=== PATIENT | female | born 1965 | race Caucasian/White ===

== ENCOUNTER 2017-02-18 06:00 | Inpatient (IN) | payer OTHER ==
[~2017-02-18] VITALS: Ht 165.1 cm; Wt 107.5 kg
[2017-02-18 07:27] LABS: BASOPHILS # (AUTO) 0.1 K/uL (0.00-0.22); BASOPHILS % (AUTO) 1.1 % (0.0-2.0); EOSINOPHILS # (AUTO) 0.2 K/uL (0-0.4); EOSINOPHILS % (AUTO) 1.9 % (0.0-4.0); HEMATOCRIT 37.2 % (36-48); HEMOGLOBIN 12.4 g/dL (12.0-16.0); LYMPHOCYTES # (AUTO) 1.7 K/uL (2.5-16.5); LYMPHOCYTES % (AUTO) 21.2 % (20.5-51.1); MEAN CORPUSCULAR HEMOGLOBIN 28 pg (27-31); MEAN CORPUSCULAR HGB CONC 34 g/dL (33-37); MEAN CORPUSCULAR VOLUME 83 fL (80-94); MONOCYTES # (AUTO) 0.4 K/uL (0.8-1.0); MONOCYTES % (AUTO) 5.1 % (1.7-9.3); NEUTROPHILS # (AUTO) 5.5 K/uL (1.8-7.7); NEUTROPHILS % (AUTO) 70.7 % (42.2-75.2); PLATELET COUNT (AUTO) 226 K/uL (140-450); RED BLOOD CELL COUNT(AUTO) 4.49 MIL/uL (4.20-5.40); RED CELL DISTRIBUTION WIDTH 14.1 % (11.6-13.7); WHITE BLOOD COUNT (AUTO) 7.9 K/uL (4.8-10.8)
[2017-02-18] MEDS ORDERED: BUPIVACAINE-MPF/EPI 0.5% 30 ML VIAL INJ ONE (07:29)
[2017-02-18 07:50] LABS: ANION GAP 13.3 (8-16); CALCIUM 8.6 mg/dL (8.5-10.1); CARBON DIOXIDE 26.4 mmol/L (21-32); CREATININE 0.6 mg/dL (0.6-1.3); POTASSIUM 3.7 mmol/L (3.5-5.1)
[2017-02-18 07:56] LABS: ALBUMIN 3.3 g/dL (3.4-5.0); TOTAL BILIRUBIN 0.4 mg/dL (0.0-1.0); TOTAL PROTEIN, SERUM 8.1 g/dL (6.4-8.2)
[2017-02-18] MEDS ORDERED: PROPOFOL 200 MG/20 ML VIAL IV ONE (08:09)
[2017-02-18] MEDS ORDERED: ROCURONIUM 50 MG/5 ML VIAL IV ONE (08:09)
[2017-02-18] MEDS ORDERED: PHENYLEPHRINE 10 MG/ML VIAL IM ONE (08:09)
[2017-02-18] MEDS ORDERED: GLYCOPYRROLATE 0.2 MG/ML VIAL IV ONE (08:09)
[2017-02-18] MEDS ORDERED: ONDANSETRON 4 MG/2 ML VIAL IVP ONE (08:09)
[2017-02-18] MEDS ORDERED: ONDANSETRON 4 MG/2 ML VIAL IVP PRN ×2 (08:20→08:40)
[2017-02-18] MEDS ORDERED: fentaNYL 0.05 MG/ML VIAL ONE (08:21)
[2017-02-18] MEDS ORDERED: HYDROmorphone PFS 2 MG/ML SYR ONE (08:21)
[2017-02-18] MEDS ORDERED: HYDROmorphone 1 MG/ML AMP IVP PRN (08:40)
[2017-02-18] MEDS: HYDROmorphone PFS 2 MG/ML SYR ONE ×2 (09:35→09:45)
--- NOTE | 2017-02-18 10:20 | NUR ---
RECEIVED PATIENT FROM OR, PT SLEEPING AND AROUSABLE NO SIGNS OF ACUTE DISTRESS. RECEIVED REPORT FROM RN IN OR.
--- NOTE | 2017-02-18 10:20 | NUR ---
PT SLEEPING AND AROUSABLE, NO SIGNS OF ACUTE DISTRESS. BOWEL SOUNDS ACTIVE IN ALL 4 QUADRANTS. BEDREST. SURGICAL MIDLINE LOWER ABDOMINAL INCISION CLOSED WITH GEOFF AND COVERED WITH DRY DRESSING. NO PAIN IS NOTED AT THIS TIME PATIENT IS ASLEEP. BOWEL AND BLADDER CONTINENCE. BOLUS OF NORMAL SALINE INFUSING IN IV ON THE RIGHT WRIST, IV PATENT AND ASYMPTOMATIC. ORIENTED FAMILY AND PATIENT TO HOSPITAL AND UNIT, FAMILY AND PATIENT VERBALIZES UNDERSTANDING, REINFORCEMENT NEEDED DUE TO PATIENT BEING GROGGY FROM ANESTHESIA AND PAIN MEDICATION FROM SURGERY.
[2017-02-18] MEDS ORDERED: METF850T37 PO (10:58)
[2017-02-18] MEDS ORDERED: ASPI81CT80 PO (10:58)
[2017-02-18] MEDS ORDERED: LANTUS SUBQ (10:58)
[2017-02-18] MEDS ORDERED: AMLO-27 PO (10:58)
[2017-02-18] MEDS ORDERED: BENA20TA5 PO (10:58)
[2017-02-18] MEDS ORDERED: GLIP5TAB13 PO (10:58)
[2017-02-18] MEDS ORDERED: SIMV20TA6 PO (10:58)
[2017-02-18] MEDS: MORPHINE SULFATE 4 MG/ML SYR IM/IVP PRN ×3 (14:57→23:23)
[2017-02-18 16:00] VITALS: BP 127/59
[2017-02-18] MEDS: BLOOD GLUCOSE MONITORING 1 DEV DEV FS SCH ×2 (16:30→21:13)
[2017-02-18] MEDS: LACTATED RINGERS 1,000 ML IV SCH (16:30)
[2017-02-18] MEDS: INSULIN LISPRO SLIDING SCALE 100 UNITS/ML VIAL SUBQ PRN (17:31)
--- NOTE | 2017-02-18 19:30 | NUR ---
PT AWAKE AND ALERT, NO SIGNS OF ACUTE DISTRESS. ENDORSED TO SOCIAL SERVICE DIRECTOR NURSE FOR CONTINUITY OF CARE.
--- NOTE | 2017-02-18 19:31 | NUR ---
RECEIVED REPORT, ASSUMED CARE. PT AAOX4.NO S/S OF RESPIRATORY DISTRESS AT THIS TIME. IV ACCESS TO RT WRIST, GAUGE 20. NO S/S OF INFILTRATION AT THIS TIME. ALL NEEDS ANTICIPATED. CALL LIGHT KEPT WITHIN EASY REACH. DISCUSSED PLAN OF CARE. PT VERBALIZED UNDERSTANDING.PT C/O ABDOMINAL SURGICAL INCISION. DRESSING INTACT, CLEAN WITH NO ACTIVE BLEEDING AT THIS TIME. MAHAN CATH IN PLACE, DRAINING CLEAR URINE OUTPUT. WILL MEDICATE PAIN. WILL CONTINUE TO MONITOR.
[2017-02-18 20:00] VITALS: BP 128/68
--- NOTE | 2017-02-18 21:13 | NUR ---
BLOOD SUGAR 143MG/DL WITH NO INSULIN COVERAGE PER SLIDING SCALE. PT ASYMPTOMATIC. WILL CONTINUE TO MONITOR.
--- NOTE | 2017-02-18 23:55 | NUR ---
ASSISTED PT TO REPOSITION SELF IN BED. KEPT CLEAN AND COMFORTABLE AT ALL TIMES. CALL LIGHT WITHIN EASY REACH.
[2017-02-19] VITALS: BP 126/64
[2017-02-19] MEDS: LACTATED RINGERS 1,000 ML IV SCH ×3 (03:18→22:30)
--- NOTE | 2017-02-19 03:18 | NUR ---
IVF LR DONE, HOOKED A NEW BAG OF IVF LR WITH SAME RATE OF 100ML/HR. PT TOLERATE WELL.
[2017-02-19] MEDS: MORPHINE SULFATE 4 MG/ML SYR IM/IVP PRN ×3 (04:45→15:11)
[2017-02-19] MEDS: BLOOD GLUCOSE MONITORING 1 DEV DEV FS SCH ×4 (06:06→20:34)
[2017-02-19 06:16] LABS: BASOPHILS % (AUTO) 0.5 % (0.0-2.0); EOSINOPHILS # (AUTO) 0.1 K/uL (0-0.4); HEMATOCRIT 33.3 % (36-48); HEMOGLOBIN 11.1 g/dL (12.0-16.0); LYMPHOCYTES # (AUTO) 1.6 K/uL (2.5-16.5); LYMPHOCYTES % (AUTO) 16.1 % (20.5-51.1); MEAN CORPUSCULAR HEMOGLOBIN 28 pg (27-31); MEAN CORPUSCULAR HGB CONC 34 g/dL (33-37); MEAN CORPUSCULAR VOLUME 84 fL (80-94); MONOCYTES # (AUTO) 0.8 K/uL (0.8-1.0); NEUTROPHILS # (AUTO) 7.4 K/uL (1.8-7.7); NEUTROPHILS % (AUTO) 74.4 % (42.2-75.2); PLATELET COUNT (AUTO) 209 K/uL (140-450); RED BLOOD CELL COUNT(AUTO) 3.97 MIL/uL (4.20-5.40); RED CELL DISTRIBUTION WIDTH 13.6 % (11.6-13.7); WHITE BLOOD COUNT (AUTO) 9.9 K/uL (4.8-10.8)
--- NOTE | 2017-02-19 06:36 | NUR ---
MAHAN CATH DCd ORDERED. PT TOLERATED PROCEDURE WELL. OUTPUT IN THE URINE BAG 300ML CLEAR YELLOW URINE WITH NO HEMATURIA NOTED. WILL ENDORSE TO NEXT SHIFT TO CONTINUE MONITOR ADVERSE REACTION. PT DENIES PAIN AT THIS TIME.
--- NOTE | 2017-02-19 07:23 | NUR ---
PT AWAKE, RESTING IN BED. NO S/S OF RESPIRATORY DISTRESS. NO ACUTE CHANGES NOTED THROUGHOUT THE SHIFT. ENDOSED TO NEXT SHIFT FOR CONTINUITY OF CARE. PT IN STABLE CONDITION.
--- NOTE | 2017-02-19 07:24 | NUR ---
PT AWAKE AND RESTING IN BED, NO SIGNS OF ACUTE DISTRESS. BOWEL SOUNDS ACTIVE IN ALL 4 QUADRANTS. CONTINENT TO BOWEL AND BLADDER. ABDOMINAL SURGICAL INCISION CLOSED WITH GEOFF AND COVERED WITH CLEAN DRY DRESSING. AMBULATORY WITH BRP. IV PATENT AND ASYMPTOMATIC INFUSING LACTATED RINGERS AT 100ML PER HOUR. PT STATES PAIN IS 4/10 AT THIS TIME, DOES NOT WANT PAIN MEDICATION. RE-ORIENTED TO UNIT AND TO HOSPITAL, PT VERBALIZED UNDERSTANDING. BED IN LOW POSITION WITH BILATERAL HALF SIDE RAILS UP AND CALL LIGHT WITHIN REACH.
[2017-02-19 07:45] VITALS: BP 134/64
--- NOTE | 2017-02-19 09:05 | NUR ---
PATIENT HAS BEEN SCREENED AND CATEGORIZED MODERATE NUTRITION RISK. PATIENT WILL BE SEEN WITHIN 3-5 DAYS OF ADMISSION. 02/18/17-02/23/[address]
--- NOTE | 2017-02-19 10:43 | NUR ---
CM NOTE INITIAL REVIEW FAXED TO [facility] [phone] January [phone] JACQUELINE [phone]
[2017-02-19] MEDS: INSULIN LISPRO SLIDING SCALE 100 UNITS/ML VIAL SUBQ PRN ×3 (11:42→20:33)
[2017-02-19 16:00] VITALS: BP 136/71
--- NOTE | 2017-02-19 19:30 | NUR ---
PT AWAKE AND ALERT, NO SIGNS OF ACUTE DISTRESS. ENDORSED TO PATTERN ILLUSTRATOR NURSE FOR CONTINUITY OF CARE.
--- NOTE | 2017-02-19 19:30 | NUR ---
RECEIVED PT AWAKE ON BED TALKING TO FAMILY MEMBERS IN THE ROOM, DENIES ANY PAIN, ABDOMINAL DRESSING DRY AND INTACT, IVF INFUSING WELL, VERBALIZED TOLERATING CLEAR LIQUID DIET, NOT PASSING GAS YET BUT BURPING, PLAN OF CARE DISCUSSED, CALL LIGHT WITHIN REACH.
[2017-02-19 20:00] VITALS: BP 119/83
[2017-02-19] MEDS: ACETAMINOPHEN/CODEINE 300/30MG 1 TAB PO PRN (20:28)
[2017-02-19] MEDS ORDERED: ACETAMINOPHEN 325 MG TAB PO PRN (20:55)
[2017-02-19] MEDS ORDERED: LEVOFLOXACIN 750 MG/D5W PREMIX 150 ML IV SCH (20:55)
--- NOTE | 2017-02-19 21:05 | NUR ---
WITH ORAL TEMP OF 100.0, MEDICATED WITH TYLENOL, COOLING MEASURES INITIATED, PAGEGenoveva ROJO, WITH NEW ORDERS CARRIED OUT, STARTED ON LEVAQUIN IVPB, MONITORED FOR REACTION.
--- NOTE | 2017-02-19 23:31 | NUR ---
PT SLEEPING, EASILY AROUSABLE, VITAL SIGNS STABLE, AFEBRILE, DENIES ANY PAIN, LEVAQUIN IVPB DONE WITH NO REACTION NOTED, ABDOMINAL DRESSING DRY AND INTACT, CONTINUE TO MONITOR CLOSELY.
[2017-02-20] VITALS: BP 129/65
[2017-02-20] MEDS: LACTATED RINGERS 1,000 ML IV SCH ×2 (03:20→08:30)
--- NOTE | 2017-02-20 03:22 | NUR ---
PT AMBULATED TO BR WITH MINIMAL ASSIST AND VOIDED FREELY, ORAL CARE DONE INDEPENDENTLY, BED LINEN AND GOWN CHANGED, MADE COMFORTABLE ON BED, DENIES ANY PAIN, TEMP-98.1, MONITORED CLOSELY.
[2017-02-20 05:43] LABS: BASOPHILS # (AUTO) 0.1 K/uL (0.00-0.22); BASOPHILS % (AUTO) 0.7 % (0.0-2.0); EOSINOPHILS # (AUTO) 0.1 K/uL (0-0.4); EOSINOPHILS % (AUTO) 1.3 % (0.0-4.0); HEMATOCRIT 33.1 % (36-48); HEMOGLOBIN 10.9 g/dL (12.0-16.0); LYMPHOCYTES # (AUTO) 1.2 K/uL (2.5-16.5); MEAN CORPUSCULAR HEMOGLOBIN 27 pg (27-31); MEAN CORPUSCULAR HGB CONC 33 g/dL (33-37); MEAN CORPUSCULAR VOLUME 83 fL (80-94); MONOCYTES # (AUTO) 0.8 K/uL (0.8-1.0); MONOCYTES % (AUTO) 8.2 % (1.7-9.3); NEUTROPHILS # (AUTO) 7.8 K/uL (1.8-7.7); NEUTROPHILS % (AUTO) 77.8 % (42.2-75.2); PLATELET COUNT (AUTO) 187 K/uL (140-450); RED BLOOD CELL COUNT(AUTO) 3.98 MIL/uL (4.20-5.40); RED CELL DISTRIBUTION WIDTH 13.4 % (11.6-13.7)
[2017-02-20] MEDS: BLOOD GLUCOSE MONITORING 1 DEV DEV FS SCH ×2 (05:57→11:36)
[2017-02-20] MEDS: INSULIN LISPRO SLIDING SCALE 100 UNITS/ML VIAL SUBQ PRN ×2 (05:58→11:37)
--- NOTE | 2017-02-20 06:00 | NUR ---
BLOOD SUGAR CHECKED WITH 169 RESULT, COVERAGE GIVEN, DENIES PAIN AT THIS TIME, DRESSING DRY AND INTACT, IVF INFUSING WELL, MONITORED CLOSELY.
--- NOTE | 2017-02-20 07:25 | NUR ---
RECEIVED CARE OF PT FROM BEDSIDE FROM HARMONICA MAKER NURSE. UPDATED THE BOARD AND INTRODUCED MYSELF. PT IS ALERT AWAKE AND ORIENTED. PT HAS IV ON R WRIST G 20 RUNNING LR@100ML/HR. PT HAS SCDS ON. PT HAS INCISION ON ABDOMEN COVERED WITH DRESSING DRY AND INTACT. HAS PAIN BUT TOLERABLE, WILL CALL WHEN NEEDS PAIN MED. CALL LIGHT WITHIN REACH. WILL CONTINUE TO MONITOR.
[2017-02-20 08:00] VITALS: BP 122/69
--- NOTE | 2017-02-20 08:54 | NUR ---
CM NOTE CONCURRENT REVIEW FAXED TO [facility] [phone] January [phone] JACQUELINE [phone]
[2017-02-20] MEDS: ACETAMINOPHEN/CODEINE 300/30MG 1 TAB PO PRN ×2 (09:14→14:02)
--- NOTE | 2017-02-20 09:30 | NUR ---
PT GOT UP TO USE BATHROOM. HELPED BACK TO BED. TOLERATED WELL. STILL NEEDS ASSISTANCE. CALL LIGHT WITHIN REACH. WILL CONTINUE TO MONITOR.
--- NOTE | 2017-02-20 11:58 | NUR ---
PT RESTING COMFORTABLY IN BED. FAMILY AT BEDSIDE. CALL LIGHT WITHIN REACH. WILL CONTINUE TO MONITOR.
--- NOTE | 2017-02-20 13:00 | NUR ---
PT TOOK A WALK IN HALLWAY WITH SON. TOLERATED WELL. CALL LIGHT WITHIN REACH. WILL CONTINUE TO MONITOR.
[2017-02-20 15:04] VITALS: BP 122/69
--- NOTE | 2017-02-20 15:25 | NUR ---
WENT OVER PAPERWORK WITH PT AND DAUGHTER. PT SIGNED ALL PAPERWORK AND VERBALIZED UNDERSTANDING. SURGICAL WOUND PICTURE TAKEN, CLEAN WITH DRY BLOOD, CLEANED WITH STERILE WATER, COVERED WITH ABD PAD. WOUND CARE TEACHING GIVEN. PT VERBALIZED UNDERSTANDING. SENT HOME WITH SUPPLIES. IV REMOVED. BANDS CUT OFF.
--- NOTE | 2017-02-20 15:30 | NUR ---
WHEELED PT OUT. ACCOMPANIED BY DAUGHTER. TOOK ALL BELONGINGS. PT IN STABLE CONDITION.
== END 2017-02-20 15:30 | disposition home or self-care (01) | DRG 513 ==
LOC: MDS 06:00 → MMU 06:02 → MTU 11:01 → MDS 17:17 → MTU 17:18
PROVIDERS: ADMIT Obstetrics & Gynecology; ATTEND Obstetrics & Gynecology
PROC: 0UT70ZZ Resection of Bilateral Fallopian Tubes, Open Approach (ICD-10-PCS; 2017-02-18)
PROC: 0UT20ZZ Resection of Bilateral Ovaries, Open Approach (ICD-10-PCS; 2017-02-18)
PROC: 0UT90ZZ Resection of Uterus, Open Approach (ICD-10-PCS; principal; 2017-02-18 07:30)
PROC: 0UTC0ZZ Resection of Cervix, Open Approach (ICD-10-PCS; 2017-02-18 07:30)
PROC: 0U910ZZ Drainage of Left Ovary, Open Approach (ICD-10-PCS; 2017-02-18 07:30)
DX: N83.202 Unspecified ovarian cyst, left side (principal); E66.01 Morbid (severe) obesity due to excess calories; I10 Essential (primary) hypertension; G89.29 Other chronic pain; E11.9 Type 2 diabetes mellitus without complications; Z68.39 Body mass index [BMI] 39.0-39.9, adult
CPT/HCPCS: 36415; 80053; 82948; 85025; 86886; 86900; 86901; 87081; 93005; J0690; J1170; J1815; J1956; J2270; J2370; J2405; J2704; J3010; J3490; J7030; J7060; J7120